=== PATIENT | male | born 1950 | race African-American/Black ===

== ENCOUNTER 2017-08-05 09:43 | Emergency (ER) | payer MEDICARE ==
[2017-08-05] MEDS ORDERED: HYDROCODONE/ACETAMINOPHEN 5-325 MG TABLET PO ONE (10:19)
[2017-08-05] MEDS ORDERED: IBUPROFEN 600 MG TABLET PO ONE (10:19)
--- NOTE | 2017-08-05 11:10 | RADIOLOGY REPORT (SQ) ---
EXAM DESCRIPTION: FOOT LEFT COMPLETE COMPLETED DATE/TIME: 08/05/2017 10:59 am REASON FOR STUDY: pain COMPARISON: None. NUMBER OF VIEWS: Three views. TECHNIQUE: AP, lateral and oblique radiographic images acquired of the left foot. LIMITATIONS: None. FINDINGS: MINERALIZATION: Normal. BONES: No acute fracture or dislocation. Chronic changes in the great toe with hallux valgus and bun ion deformity. Plantar calcaneal spur. No worrisome bone lesions. JOINTS: No effusions. SOFT TISSUES: No soft tissue swelling. No foreign body. OTHER: No other significant finding. IMPRESSION: CHRONIC CHANGES ABOVE. NO ACUTE FINDINGS. NO RADIOGRAPHIC FINDING IN THE LATERAL FO OT IN THE AREA OF INDICATED PAIN. TECHNICAL DOCUMENTATION: JOB ID: [id number] [employer]- All Rights Reserved Reading location - IP/workstation name: [email or web address]
--- NOTE | 2017-08-05 11:17 | ER Document Report ---
ED Extremity Problem, Lower - General Chief Complaint: Foot Pain Stated Complaint: FOOT PAIN Time Seen by Provider: 08/05/17 10:19 Mode of Arrival: Wheelchair Information source: Patient Notes: Patient presents with 2 days of severe constant left foot pain. It is located in the mid lateral aspect of the foot. He denies any known injuries or trauma. He states he does have a history of gout and this feels like his previous gout episodes. Pain is throbbing. Does radiate up his left leg. It is worse with walking better with rest. TRAVEL OUTSIDE OF THE [place] IN LAST 30 DAYS: No - Related Data Allergies/Adverse Reactions: No Known Allergies Allergy (Verified 08/05/17 09:48) Past Medical History - General Information source: Patient - Social History Smoking Status: Never Smoker Chew tobacco use (# tins/day): No Frequency of alcohol use: None Drug Abuse: None Family History: Reviewed & Not Pertinent Patient has suicidal ideation: No Patient has homicidal ideation: No - Past Medical History Cardiac Medical History: Reports: Hx Hypertension Renal/ Medical History: Denies: Hx Peritoneal Dialysis - Immunizations Hx Diphtheria, Pertussis, Tetanus Vaccination: Yes Review of Systems - Review of Systems Constitutional: denies: Chills, Fever Cardiovascular: denies: Chest pain, Palpitations Respiratory: denies: Cough, Short of breath -: Yes All other systems reviewed and negative Physical Exam - Vital signs Vitals: Temp Pulse Resp BP Pulse Ox 98.5 F 86 20 112/72 97 08/05/17 10:06 08/05/17 10:06 08/05/17 10:06 08/05/17 10:06 08/05/17 10:06 Interpretation: Normal - General General appearance: Appears well, Alert - HEENT Head: Normocephalic, Atraumatic Eyes: Normal Pupils: PERRL - Respiratory Respiratory status: No respiratory distress Chest status: Nontender Breath sounds: Normal Chest palpation: Normal - Cardiovascular Rhythm: Regular Heart sounds: Normal auscultation Murmur: No - Abdominal Inspection: Normal Distension: No distension Bowel sounds: Normal Tenderness: Nontender Organomegaly: No organomegaly - Back Back: Normal, Nontender - Extremities General upper extremity: Normal inspection, Nontender, Normal color, Normal ROM , Normal temperature General lower extremity: Tender, Edema, Other - Patient's left foot has warmth tenderness and erythema to the lateral aspect. It is consistent with gout.. No : Alfie's sign - Neurological Neuro grossly intact: Yes Cognition: Normal Orientation: AAOx4 Tory Coma Scale Eye Opening: Spontaneous [place] Coma Scale Verbal: Oriented Tory Coma Scale Motor: Obeys Commands Tory Coma Scale Total: 15 Speech: Normal Motor strength normal: LUE, RUE, LLE, RLE Sensory: Normal - Psychological Associated symptoms: Normal affect, Normal mood - Skin Skin Temperature: Warm Skin Moisture: Dry Skin Color: Normal Course - Vital Signs Vital signs: Temp Pulse Resp BP Pulse Ox 98.5 F 86 20 112/72 97 08/05/17 10:06 08/05/17 10:06 08/05/17 10:06 08/05/17 10:06 08/05/17 10:06 - Diagnostic Test Radiology reviewed: Image reviewed, Reports reviewed - X-ray left foot is unremarkable for any fracture dislocation. Discharge - Discharge Clinical Impression: Gout attack Qualifiers: Gout site: foot Gout etiology: unspecified cause Laterality: left Qualified Code(s): M10.9 - Gout, unspecified Condition: Stable Disposition: HOME, SELF-CARE Instructions: Gout (OM), Gout Diet (OM) Prescriptions: Oxycodone HCl/Acetaminophen [Percocet 5-325 mg Tablet] 1 - 2 tab PO Q4H PRN #15 tablet PRN Reason: Prednisone [Deltasone 20 mg Tablet] 3 tab PO DAILY 5 Days tablet Forms: Return to Work
[2017-08-05 11:28] VITALS: BP 106/76
== END 2017-08-05 11:28 | disposition home or self-care (01) ==
LOC: ER 09:43
DX: M10.9 Gout, unspecified (principal); M79.672 Pain in left foot; G89.29 Other chronic pain
CPT/HCPCS: 99283; 73630; A9270 ×2

== ENCOUNTER 2017-11-05 23:29 | Emergency (ER) | payer MEDICARE ==
[2017-11-06] MEDS ORDERED: KETOROLAC TROMETHAMINE 60 MG/2 ML SDV IM ONE (00:36)
--- NOTE | 2017-11-06 00:41 | ER Document Report ---
ED Extremity Problem, Lower - General Chief Complaint: Leg Pain Stated Complaint: LEG PAIN Time Seen by Provider: 11/06/17 00:28 Mode of Arrival: Ambulatory Information source: Patient Notes: 67-year-old male presents emergency department with planes of right knee pain that has been constant for the last 3 days. Patient states that he has a history of gout. He states that he has has had gout in his right knee previously. He states that this feels similar to his prior gout flareups. Patient states that he usually takes colchicine. He states that he ran out of the medication and his primary care physician just called in a refill. Patient states that he was not able to get to the pharmacy today to have his medication refilled. He is coming to the emergency department for pain control until he can get to the pharmacy in the morning. Patient denies trauma, injury, erythema , edema, fever, chills, neuro deficits. No alleviating or exacerbating factors. TRAVEL OUTSIDE OF THE [place] IN LAST 30 DAYS: No - HPI Patient complains to provider of: Pain Location: Knee Occurred: Other - 3 days Where: Home Onset/Duration: Gradual Quality of pain: Dull, Throbbing Severity: Mild Recent injury: No Associated symptoms: denies: Chills, Dizzy, Fever, Unable to bear weight Exacerbated by: Nothing Relieved by: Nothing - Related Data Allergies/Adverse Reactions: No Known Allergies Allergy (Verified 08/05/17 09:48) Past Medical History - General Information source: Patient - Social History Smoking Status: Never Smoker Family History: Reviewed & Not Pertinent - Past Medical History Cardiac Medical History: Reports: Hx Hypertension Renal/ Medical History: Denies: Hx Peritoneal Dialysis - Immunizations Hx Diphtheria, Pertussis, Tetanus Vaccination: Yes Review of Systems - Review of Systems Constitutional: No symptoms reported EENT: No symptoms reported Cardiovascular: No symptoms reported Respiratory: No symptoms reported Gastrointestinal: No symptoms reported Genitourinary: No symptoms reported Musculoskeletal: Gout, Joint pain Skin: No symptoms reported Neurological/Psychological: No symptoms reported -: Yes All other systems reviewed and negative Physical Exam - Vital signs Vitals: Temp Pulse Resp BP Pulse Ox 98.8 F 82 18 167/98 H 98 11/05/17 23:34 11/05/17 23:34 11/05/17 23:34 11/05/17 23:34 11/05/17 23:34 Interpretation: Normal - Notes Notes: PHYSICAL EXAMINATION: GENERAL: Well-appearing, well-nourished and in no acute distress. HEAD: Atraumatic, normocephalic. EYES: Pupils equal round and reactive to light, extraocular movements intact, sclera anicteric, conjunctiva are normal. ENT: Nares patent, oropharynx clear without exudates. Moist mucous membranes. NECK: Normal range of motion, supple without lymphadenopathy LUNGS: Breath sounds clear to auscultation bilaterally and equal. No wheezes rales or rhonchi. HEART: Regular rate and rhythm without murmurs ABDOMEN: Soft, nontender, nondistended abdomen. No guarding, no rebound. No masses appreciated. Musculoskeletal: Normal range of motion. No edema. No cyanosis. No erythema, warmth, or tenderness to palpation of the R knee. 2+ DP/PT pulses. NEUROLOGICAL: Cranial nerves grossly intact. Normal speech, normal gait. Normal sensory, motor exams PSYCH: Normal mood, normal affect. SKIN: Warm, Dry, normal turgor, no rashes or lesions noted. Course - Re-evaluation Re-evalutation: Patient drove to the ED. Given toradol for pain management. Patient has rx for colchicine already at the pharmacy. Patient instructed to take the medication as directed, to follow up with his PCP this week, and to return for worsening symptoms. Patient is agreeable with the plan of care. 11/06/17 00:44 - Vital Signs Vital signs: Temp Pulse Resp BP Pulse Ox 98.8 F 82 18 167/98 H 98 11/05/17 23:34 11/05/17 23:34 11/05/17 23:34 11/05/17 23:34 11/05/17 23:34 Discharge - Discharge Clinical Impression: Gout Qualifiers: Gout site: knee Chronicity: acute Laterality: right Condition: Stable Disposition: HOME, SELF-CARE Instructions: Gout (OM), Gout Diet (OM) Additional Instructions: Take colchicine as directed. Follow up with your primary care physician this week. Return to the ED for worsening symptoms.
[2017-11-06 02:12] VITALS: BP 161/83
== END 2017-11-06 02:11 | disposition home or self-care (01) ==
LOC: ER 23:29
DX: M10.9 Gout, unspecified (principal); M25.561 Pain in right knee; Z79.899 Other long term (current) drug therapy; I10 Essential (primary) hypertension
CPT/HCPCS: 99283; 96372; J1885

== ENCOUNTER 2019-01-19 12:57 | Emergency (ER) | payer OTHER, MEDICARE ==
[2019-01-19] MEDS ORDERED: ACETAMINOPHEN 325 MG TABLET PO ONE (13:19)
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
[2019-01-19] MEDS ORDERED: ONDANSETRON HCL INJ/PF 4 MG/2 ML SDV IV ONE (14:53)
[2019-01-19] MEDS ORDERED: MORPHINE SULFATE 10 MG/ML INJ IV ONE (14:53)
[2019-01-19] MEDS ORDERED: MORPHINE SULFATE 10 MG/ML INJ ONE (14:58)
[2019-01-19] MEDS ORDERED: ONDANSETRON HCL INJ/PF 4 MG/2 ML SDV ONE (14:59)
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
[2019-01-19 17:05] VITALS: BP 153/95
--- NOTE | 2019-01-19 17:31 | EKG REPORT ---
SEVERITY:- ABNORMAL ECG - SINUS RHYTHM PROBABLE INFERIOR INFARCT, AGE INDETERMINATE : Confirmed by: Leonie Lei MD 19-Jan-2019 17:30:45
== END 2019-01-19 17:16 | disposition home or self-care (01) ==
LOC: ER 12:57
DX: S46.912A Strain of unspecified muscle, fascia and tendon at shoulder and upper arm level, left arm, initial encounter (principal); S16.1XXA Strain of muscle, fascia and tendon at neck level, initial encounter; M25.512 Pain in left shoulder; M25.561 Pain in right knee; M25.461 Effusion, right knee; V49.40XA Driver injured in collision with unspecified motor vehicles in traffic accident, initial encounter; I10 Essential (primary) hypertension; M17.11 Unilateral primary osteoarthritis, right knee
CPT/HCPCS: 93005; 73560; 73562; 73030; 70450; 72125; 93010; J2270; J2405; 96374; 96375; 99284

== ENCOUNTER → 2019-05-03 | Outpatient (CLI) | payer MEDICARE ==
[2019-05-03 09:23] LABS: BLOOD UREA NITROGEN 13 mg/dL (7-20)
--- NOTE | 2019-05-03 12:57 | RADIOLOGY REPORT (SQ) ---
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 The route of agent administration: Intravenous. ADDITIONAL DRUGS AND DOSES: None. TECHNIQUE: Routine delayed images at 3 hour post radionuclide injection acquired of the bony skeleto n including anterior and posterior whole-body projections and additional focused images as needed. LIMITATIONS: None. FINDINGS: BONES: There is increased uptake in both shoulders and knees consistent with degenerative change. Mild increased uptake in the upper sternum. Etiology of this is uncertain. KIDNEYS: Symmetric excretion without obstruction. OTHER: No other significant finding. IMPRESSION: Degenerative changes in the shoulders and knees. Uptake in the sternum is noted near th e sternomanubrial joint. This could be degenerative. Correlation with CT may be beneficial for furt her evaluation. COMMENT: Quality measure 147: Current bone scan is compared with any available plain radiographs, p rior bone scans, and CT/MRI. TECHNICAL DOCUMENTATION: JOB ID: [id number] [employer]- All Rights Reserved Reading location - IP/workstation name: [email or web address]
--- NOTE | 2019-05-03 13:18 | RADIOLOGY REPORT (SQ) ---
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 TECHNIQUE: CT scan of the pelvis performed with intravenous contrast. Images reviewed with soft tis heriberto and bone windows. Reconstructed coronal and sagittal MPR images reviewed. All images stored on PACS. All CT scanners at this facility use dose modulation, iterative reconstruction, and/or weight based d osing when appropriate to reduce radiation dose to as low as reasonably achievable (ALARA). [facility]: Dose Right [facility]: CareDose [facility]: Dose Right [facility]: Teradose 4D [facility]: [address] Bio Contrast: 100 mL Omnipaque 350 Renal function: Creatinine 1.07 RADIATION DOSE: CT Rad equipment meets quality standard of care and radiation dose reduction techniq ues were employed. CTDIvol: 23.6 - 23.8 mGy. DLP: 1643 mGy-cm. mGy. LIMITATIONS: Omnipaque 350 FINDINGS: PELVIC BONES: No acute fracture. No worrisome bone lesions. VISUALIZED SPINE: No acute findings. HIP(S): No acute fracture or dislocation. No worrisome bone lesions. PELVIC SOFT TISSUES: No significant findings. Prostate gland is unremarkable in size and configurati on. EXTRAPELVIC SOFT TISSUES: No significant findings. OTHER: No other significant finding. IMPRESSION: No evidence of metastatic disease in the pelvis. TECHNICAL DOCUMENTATION: JOB ID: [id number] Quality ID # [id number]: Final reports with documentation of one or more dose reduction techniques (e.g., Au tomated exposure control, adjustment of the mA and/or kV according to patient size, use of iterative reconstruction technique) 2010 [employer]- All Rights Reserved Reading location - IP/workstation name: [email or web address]
== END ==
LOC: RAD 08:16
PROVIDERS: ATTEND Urology
DX: C61 Malignant neoplasm of prostate (principal)
CPT/HCPCS: 36415; 84520; 82565; 78306; 72193; A9561; Q9969